=== PATIENT | male | born 1950 | race Caucasian/White ===

== ENCOUNTER 2017-07-01 08:49 | Inpatient (IN) | payer MEDICAID, MEDICARE ==
[2017-07-01] VITALS (11 sets, daily range): BP systolic 130–147; BP diastolic 81–89
[~2017-07-01] VITALS: Ht 182.9 cm; Wt 99.8 kg
[~2017-07-01 08:49] MED LIST: ceFAZolin 1gm in D5W 55ml IVP ONE; ceFAZolin 1gm/50ml Premix 50 ML IV ONE
[2017-07-01] MEDS ORDERED: HYTRIN10 MG PO (09:11)
[2017-07-01] MEDS ORDERED: MYRBETRIQ25 MG PO (09:11)
[2017-07-01] MEDS ORDERED: CIPRO500 MG/51 PO (09:11)
[2017-07-01] MEDS ORDERED: NAPROXEN250 M1 PO (09:51)
[2017-07-01] MEDS ORDERED: SOMA350 MG PO (09:51)
[2017-07-01] MEDS ORDERED: DILAUDID4 MG ORAL (09:51)
--- NOTE | 2017-07-01 10:13 | Anethesia Preoperative Eval ---
Anesthesia Pre-op PMH/ROS General Date of Evaluation: Jul 01, 2017 Anesthesiologist: Juan Alberto ASA Score: ASA 2 Mallampati Score Class I : Soft palate, uvula, fauces, pillars visible Class II: Soft palate, uvula, fauces visible Class III: Soft palate, base of uvula visible Class IV: Only hard plate visible Mallampati Classification: Class II Surgeon: Frank Diagnosis: BPH Surgical Procedure: TURP Anesthesia History: none Family History: no anesthesia problems Allergies: Coded Allergies: No Known Allergies (Unverified , 07/01/17) Medications: see eMAR Past Medical History Cardiovascular: Reports: HTN, Denies: CAD, NM, valve dz, arrhythmia, other Pulmonary: Denies: asthma, COPD, SHARRI, other Gastrointestinal/Genitourinary: Denies: GERD, CRI, ESRD, other Neurologic/Psychiatric: Reports: other - BPH, vertigo, menieres, Denies: dementia, CVA, depression/anxiety, TIA Endocrine: Denies: DM, hypothyroidism, steroids, other HEENT: Reports: [place] (R), Denies: cataract (L), cataract (R), glaucoma, [place] (L), other Hematology/Immune: Denies: anemia, DVT, bleeding disorder, other Musculoskeletal/Integumentary: Reports: OA, other - LBP, Denies: RA, DJD, DDD, edema Other: obesity PSxH Narrative: ear sx, lumbar sx, right foot sx Anesthesia Pre-op Phys. Exam Physician Exam Last Vital Signs Date Time Temp Pulse Resp B/P (MAP) Pulse Ox O2 Delivery O2 Flow Rate FiO2 07/01/17 09:56 98.3 72 18 137/89 95 Room Air Constitutional: NAD Cardiovascular: RRR Respiratory: CTA Airway Exam Mallampati Score: Class III MO: full ROM: limited Teeth: intact Anesthesia Pre-op A/P Labs see chart Studies Pre-op Studies: EKG - sr Risk Assessment & Plan Assessment: ASA II Plan: GA Status Change Before Surgery: No Pre-Antibiotics Drug: DANA PHILLIPS M.D. Jul 01, 2017 10:13
--- NOTE | 2017-07-01 12:12 | Pre-Procedure Note/Attestation ---
Pre-Procedure Note/Attestation Complete Prior to Procedure Planned Procedure: not applicable Procedure Narrative: TURP Indications for Procedure Pre-Operative Diagnosis: BPH Attestation I attest that I discussed the nature of the procedure; its benefits; risks and complications; and alternatives (and the risks and benefits of such alternatives ), prior to the procedure, with the patient (or the patient's legal automotive sales representative). I attest that, if there was a reasonable possibility of needing a blood transfusion, the patient (or the patient's legal automotive sales representative) was given the [facility] standardized written summary, pursuant to the [place] Blood Safety Act ([place] Health and Safety Code # 1645, as amended). I attest that I re-evaluated the patient just prior to the surgery and that there has been no change in the patient's H&P, except as documented below: Stefano Marie MD Jul 01, 2017 12:11
--- NOTE | 2017-07-01 12:13 | Brief Operative Note ---
Immediate Post Operative Note Operative Note Pre-op Diagnosis: BPH Procedure: TURP Post-op Diagnosis: same Post-op Diagnosis: same as pre-op Surgeon: Salvatore Marie Anesthesia: general Specimen: yes Complications: none Condition: stable Fluids: 1000 Estimated Blood Loss: minimal Implant(s) used?: No Stefano Marie MD Jul 01, 2017 12:13
[2017-07-01] MEDS ORDERED: Sterile Water Irrig 1000ml IRRIG ONE (12:27)
[2017-07-01] MEDS ORDERED: Lidocaine 1% MPF 10mg/ml 5ml ONE (12:27)
[2017-07-01] MEDS ORDERED: NS Irrig 2000ml IRRIG ONE (12:27)
[2017-07-01] MEDS ORDERED: fentaNYL 100 mcg/2 mL IV ONE (12:27)
[2017-07-01] MEDS ORDERED: LR 1000ml ONE (12:27)
[2017-07-01] MEDS ORDERED: Midazolam 2mg/2ml Inj ONE (12:27)
[2017-07-01] MEDS ORDERED: Zemuron 50mg/5ml Inj IV ONE (12:27)
[2017-07-01] MEDS ORDERED: NS Irrig 4000ml IRRIG ONE (12:27)
[2017-07-01] MEDS ORDERED: Propofol 200mg/20ml IV ONE (12:27)
[2017-07-01] MEDS ORDERED: NS Irrig 1000ml ONE (12:27)
[2017-07-01] MEDS ORDERED: LR 1000ml 1,000 ML IVLG SCH (12:53)
[2017-07-01] MEDS ORDERED: fentaNYL 100 mcg/2 mL IV PRN (13:00)
[2017-07-01] MEDS ORDERED: LORazepam Inj 2mg/ml 1ml IV PRN (13:00)
[2017-07-01] MEDS ORDERED: Ketorolac 30mg Inj IV PRN (13:00)
[2017-07-01] MEDS ORDERED: Midazolam 2mg/2ml Inj IVP PRN (13:00)
[2017-07-01] MEDS ORDERED: DiphenhydrAMINE 50mg/ml Inj IVP PRN (13:00)
--- NOTE | 2017-07-01 13:00 | Immediate Post-Op Evaluation ---
Immediate Post-Op Evalulation Immediate Post-Op Evalulation Procedure: TURP Date of Evaluation: Jul 01, 2017 Time of Evaluation: 13:59 Blood Products: 0 Estimated Blood Loss: 150 Urinary Output: 0 Blood Pressure Systolic: 139 Blood Pressure Diastolic: 85 Pulse Rate: 76 Respiratory Rate: 20 O2 Sat by Pulse Oximetry: 100 Temperature (Fahrenheit): 97.6 Pain Score (1-10): 0 Nausea: No Vomiting: No Complications 0 Patient Status: awake, reacts, patent, none Hydration Status: adequate Drug: Ancef 2g Given Within 1 Hr of Incision: Yes Time Given: 12:35 DANA THOMAS M.D. Jul 01, 2017 13:00
[2017-07-01] MEDS: Hydromorphone 0.5mg/0.5ml inj IVP PRN ×2 (14:35→14:56)
[2017-07-01 15:11] LABS: BASOPHILS % (AUTO) 1.1 % (0.0-2.0); EOSINOPHILS % (AUTO) 3.7 % (0.0-3.0); HEMATOCRIT 37.2 % (42.0-52.0); HEMOGLOBIN 12.7 G/DL (14.2-18.0); LYMPHOCYTES % (AUTO) 30.5 % (20.0-45.0); MEAN CORPUSCULAR VOLUME 89 FL (80-99); MONOCYTES % (AUTO) 8.5 % (1.0-10.0); NEUTROPHILS % (AUTO) 56.2 % (45.0-75.0); PLATELET COUNT 157 K/UL (150-450); RED CELL DISTRIBUTION WIDTH 11.3 % (11.6-14.8); WHITE BLOOD COUNT 3.7 K/UL (4.8-10.8)
[2017-07-01 15:34] LABS: ANION GAP 6 mmol/L (5-15); BLOOD UREA NITROGEN 18 mg/dL (7-18); CALCIUM 8.7 MG/DL (8.5-10.1); CARBON DIOXIDE 28 MMOL/L (21-32); CHLORIDE 111 MMOL/L (98-107); CREATININE 0.9 MG/DL (0.55-1.30); POTASSIUM 3.7 MMOL/L (3.5-5.1); SODIUM 145 MMOL/L (136-145)
--- NOTE | 2017-07-01 15:45 | History and Physical ---
History of Present Illness General Date patient seen: Jul 01, 2017 Reason for Hospitalization: Dysuria Present Illness HPI The patient is a 67 yo male with pmhx BPH, HTN anxiety disorder, insomnia and recurrent urinary tract infections who presents to [facility] with chief complaint of dysuria and urinary retention. A urinary consultation has been requested to evaluate the patients serious medical condition. The patient denies fever or chills. The patient denies shortness of breath or chest pain. NO complaint of urethral discharge. Allergies: Coded Allergies: No Known Allergies (Unverified , 07/01/17) Medication History Scheduled Carisoprodol* (Soma*), 350 MG PO NEEDED, (Reported) Docusate Sodium* (Colace*), 100 MG ORAL TWICE A DAY Hydromorphone HCl (Dilaudid), 4 MG ORAL Q4H, (Reported) Levofloxacin* (Levaquin*), 500 MG ORAL DAILY Mirabegron (Myrbetriq), 25 MG PO DAILY, (Reported) Naproxen (Naproxen), 250 MG PO DAILY, (Reported) Terazosin HCl (Terazosin HCl), 2 MG ORAL BEDTIME Scheduled PRN Acetaminophen With Codeine (T#3) (Tylenol #3 Tab*), 1 TAB ORAL Q6HR PRN Patient History Healthcare decision maker SELF Resuscitation status Full Code Advanced Directive on File No Review of Systems Constitutional: Reports: malaise, weakness Genitourinary: Reports: dysuria, frequency, pain, retention, incontinence, urgency Physical Exam General Appearance: moderate distress Lines, tubes and drains: peripheral HEENT: normocephalic, atraumatic, anicteric, mucous membranes moist, PERRL Neck: non-tender, normal alignment, supple, normal inspection Respiratory/Chest: chest wall non-tender, no respiratory distress, no accessory muscle use Breasts: no masses Cardiovascular/Chest: normal peripheral pulses, normal rate, regular rhythm, no JVD Abdomen: normal bowel sounds, distended, guarding, rebound, tender Genitourinary/Rectal: enlarged prostate Extremities: normal range of motion, non-tender, normal inspection, no calf tenderness Skin Exam: normal pigmentation, warm/dry 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, no motor/sensory deficits Last 24 Hour Vital Signs Date Time Temp Pulse Resp B/P (MAP) Pulse Ox O2 Delivery O2 Flow Rate FiO2 07/01/17 15:30 98.0 65 20 140/85 100 Nasal Cannula 3.0 07/01/17 15:20 62 20 132/85 100 Nasal Cannula 3.0 07/01/17 15:12 72 20 130/83 100 Nasal Cannula 3.0 07/01/17 15:00 63 20 139/87 100 Nasal Cannula 3.0 07/01/17 14:56 72 20 147/87 100 Nasal Cannula 3.0 07/01/17 14:56 97.6 07/01/17 14:41 97.6 07/01/17 14:35 72 20 147/87 100 Nasal Cannula 3.0 07/01/17 14:10 71 20 147/83 100 Simple Mask 8.0 07/01/17 14:05 76 20 140/88 100 Simple Mask 8.0 07/01/17 13:59 97.6 76 20 139/85 100 Simple Mask 8.0 07/01/17 09:56 98.3 72 18 137/89 95 Room Air Laboratory Tests Test 07/01/17 09:30 07/01/17 14:50 Prothrombin Time 10.1 SEC (9.30-11.50) Prothromb Time International Ratio 1.0 (0.9-1.1) Activated Partial Thromboplast Time 26 SEC (23-33) White Blood Count 3.7 K/UL (4.8-10.8) L Red Blood Count 4.20 M/UL (4.70-6.10) L Hemoglobin 12.7 G/DL (14.2-18.0) L Hematocrit 37.2 % (42.0-52.0) L Mean Corpuscular Volume 89 FL (80-99) Mean Corpuscular Hemoglobin 30.3 PG (27.0-31.0) Mean Corpuscular Hemoglobin Concent 34.2 G/DL (32.0-36.0) Red Cell Distribution Width 11.3 % (11.6-14.8) L Platelet Count 157 K/UL (150-450) Mean Platelet Volume 8.3 FL (6.5-10.1) Neutrophils (%) (Auto) 56.2 % (45.0-75.0) Lymphocytes (%) (Auto) 30.5 % (20.0-45.0) Monocytes (%) (Auto) 8.5 % (1.0-10.0) Eosinophils (%) (Auto) 3.7 % (0.0-3.0) H Basophils (%) (Auto) 1.1 % (0.0-2.0) Sodium Level 145 MMOL/L (136-145) Potassium Level 3.7 MMOL/L (3.5-5.1) Chloride Level 111 MMOL/L (98-107) H Carbon Dioxide Level 28 MMOL/L (21-32) Anion Gap 6 mmol/L (5-15) Blood Urea Nitrogen 18 mg/dL (7-18) Creatinine 0.9 MG/DL (0.55-1.30) Estimat Glomerular Filtration Rate > 60 mL/min (>60) Glucose Level 97 MG/DL (74-106) Calcium Level 8.7 MG/DL (8.5-10.1) Height (Feet): 6 Height (Inches): 0.00 Weight (Pounds): 220 Medications Current Medications Medications (Trade) Dose Ordered Sig/Conchita Route PRN Reason Start Time Stop Time Status Last Admin Dose Admin Acetaminophen (Tylenol) 650 mg Q4H PRN ORAL FEVER 07/01/17 12:15 07/31/17 12:14 UNV Acetaminophen (Tylenol) 650 mg Q4H PRN ORAL Mild Pain (Pain Scale 1-3) 07/01/17 13:00 07/01/17 20:00 Acetaminophen (Tylenol) 650 mg Q6H PRN ORAL Mild Pain (Pain Scale 1-3) 07/01/17 12:15 07/31/17 12:14 UNV Acetaminophen/ Hydrocodone Bitart ([place] 5/325) 1 tab Q4H PRN ORAL Moderate Pain (Pain Scale 4-6) 07/01/17 12:15 07/08/17 12:14 UNV Cefazolin Sodium 2 gm/Dextrose 110 ml @ 220 mls/hr EVERY 8 HOURS IV 07/01/17 14:00 07/01/17 22:29 UNV Dextrose/ Electrolytes 1,000 ml @ 100 mls/hr Q10H IV 07/01/17 12:13 07/31/17 12:12 UNV Diphenhydramine HCl (Benadryl) 25 mg Q15M PRN IVP Itching 07/01/17 13:00 07/01/17 20:00 07/01/17 14:42 Docusate Sodium (Colace) 100 mg TWICE A DAY ORAL 07/01/17 18:00 07/31/17 17:59 UNV Fentanyl Citrate (Sublimaze 100 mcg/2 mL) 25 mcg Q10M PRN IV Moderate Pain (Pain Scale 4-6) 07/01/17 13:00 07/01/17 20:00 Hydralazine HCl (Apresoline) 5 mg Q30M PRN IV SBP>160 OR___/DBP>90 OR___ 07/01/17 13:00 07/01/17 20:00 Hydromorphone HCl (Dilaudid) 0.5 mg Q15M PRN IVP Severe Pain (Pain Scale 7-10) 07/01/17 13:00 07/01/17 20:00 07/01/17 14:56 Hydromorphone HCl (Dilaudid) 1 mg Q3H PRN IVP pain score 4-6 07/01/17 12:15 07/08/17 12:14 UNV Lactated Ringer's 1,000 ml @ 10 mls/hr Q24H IVLG 07/01/17 12:53 07/01/17 20:00 Lorazepam (Ativan 2mg/ml 1ml) 1 mg Q15M PRN IV For Anxiety 07/01/17 13:00 07/01/17 20:00 Midazolam HCl (Versed 2mg/2ml vial) 1 mg Q15M PRN IVP For Anxiety 07/01/17 13:00 07/01/17 20:00 Ondansetron HCl (Zofran) 4 mg Q1H PRN IVP Nausea & Vomiting 07/01/17 13:00 07/01/17 20:00 Ondansetron HCl (Zofran) 4 mg Q6H PRN IVP Nausea & Vomiting 07/01/17 12:15 07/31/17 12:14 UNV Temazepam (Restoril) 7.5 mg DAILYPRN PRN ORAL Insomnia 07/01/17 12:15 07/08/17 12:14 UNV Assessment/Plan Status: stable, progressing Assessment/Plan BPH Anxiety disorder Insomnia PLAN Avoid IVF at this time Attempt [facility] Urology consultation requested Pain management Empiric abx OT OOB and ambulate Soft diet as tolerated Anti-emetic prn Psych requested JAYNA VILLEDA Jul 01, 2017 15:44
[2017-07-01] MEDS ORDERED: HYDROmorphone 4mg tab ORAL SCH (16:00)
[2017-07-01] MEDS: D5 1/2NS w/KCl 20mEq 1,000 ML IV SCH (18:06)
[2017-07-01] MEDS: Docusate 100mg cap ORAL SCH (18:06)
[2017-07-01] MEDS: ceFAZolin sod 2 GM in NS 110 ML IV SCH (22:03)
[2017-07-01] MEDS: Terazosin 2mg cap ORAL SCH (22:03)
[2017-07-01] MEDS: HYDROmorphone 1mg/ml Carpuject IVP PRN (22:19)
[2017-07-02] VITALS: BP 143/88
[2017-07-02] MEDS: Norco 5mg/325mg tab ORAL PRN ×2 (00:23→13:23)
[2017-07-02] MEDS: ceFAZolin sod 2 GM in NS 110 ML IV SCH (03:34)
[2017-07-02] MEDS: D5 1/2NS w/KCl 20mEq 1,000 ML IV SCH ×4 (03:36→23:56)
[2017-07-02] MEDS: HYDROmorphone 1mg/ml Carpuject IVP PRN ×2 (03:37→07:13)
[2017-07-02 04:00] VITALS: BP 127/77
--- NOTE | 2017-07-02 07:14 | 48 Hour Post Anesthesia Eval ---
Post Anesthesia Evaluation Procedure: TURP Date of Evaluation: Jul 02, 2017 Time of Evaluation: 07:13 Blood Pressure Systolic: 127 0: 77 Pulse Rate: 73 Respiratory Rate: 19 Temperature (Fahrenheit): 97.1 O2 Sat by Pulse Oximetry: 98 Airway: patent Nausea: No Vomiting: No Pain Intensity: 2 Hydration Status: adequate Cardiopulmonary Status: Stable Mental Status/LOC: patient returned to baseline Follow-up Care/Observations: 0 Post-Anesthesia Complications: 0 Follow-up care needed: N/A John Kee MD Jul 02, 2017 07:14
[2017-07-02 07:31] LABS: BASOPHILS % (AUTO) 0.8 % (0.0-2.0); EOSINOPHILS % (AUTO) 4.8 % (0.0-3.0); HEMATOCRIT 36.4 % (42.0-52.0); HEMOGLOBIN 12.5 G/DL (14.2-18.0); LYMPHOCYTES % (AUTO) 20.9 % (20.0-45.0); MEAN CORPUSCULAR VOLUME 89 FL (80-99); NEUTROPHILS % (AUTO) 66.5 % (45.0-75.0); PLATELET COUNT 161 K/UL (150-450); RED BLOOD COUNT 4.11 M/UL (4.70-6.10); WHITE BLOOD COUNT 5.4 K/UL (4.8-10.8)
[2017-07-02 07:44] LABS: ANION GAP 3 mmol/L (5-15); BLOOD UREA NITROGEN 13 mg/dL (7-18); CALCIUM 8.1 MG/DL (8.5-10.1); CARBON DIOXIDE 30 MMOL/L (21-32); CHLORIDE 108 MMOL/L (98-107); CREATININE 0.8 MG/DL (0.55-1.30); POTASSIUM 3.9 MMOL/L (3.5-5.1); SODIUM 141 MMOL/L (136-145)
[2017-07-02 08:00] VITALS: BP 141/88
--- NOTE | 2017-07-02 08:32 | Pulmonology Progress Note ---
Assessment/Plan Assessment/Plan ASSESSMENT BPH s/p TURP 07/01/17 PLAN OF CARE MS floor IVF, decrease rate CBI monitor urine hand irrigation prn Pain management empiric abx IS at the bedside and encourage to use Hytrin OT OOB and ambulate CL diet tolerated, advacne to [place] for lunch and then further advance as tolerated a/emetic prn case discussed and evaluated by supervising physician Subjective Allergies: Coded Allergies: No Known Allergies (Unverified , 07/01/17) Subjective afebrile, no leucocytosis sitting in the chair pain controlled on CBI, urine pinkish, no clots tolerated CL diet Objective Last 24 Hour Vital Signs Date Time Temp Pulse Resp B/P (MAP) Pulse Ox O2 Delivery O2 Flow Rate FiO2 07/02/17 07:14 206.8 73 19 98 07/02/17 04:00 97.1 73 19 127/77 98 07/02/17 04:00 Nasal Cannula 3.0 07/02/17 00:00 98.3 76 18 143/88 99 07/02/17 00:00 Nasal Cannula 3.0 07/01/17 20:00 Nasal Cannula 3.0 07/01/17 20:00 97.3 72 20 137/81 100 07/01/17 15:30 98.0 65 20 140/85 100 Nasal Cannula 3.0 07/01/17 15:20 62 20 132/85 100 Nasal Cannula 3.0 07/01/17 15:12 72 20 130/83 100 Nasal Cannula 3.0 07/01/17 15:00 63 20 139/87 100 Nasal Cannula 3.0 07/01/17 14:56 72 20 147/87 100 Nasal Cannula 3.0 07/01/17 14:56 97.6 07/01/17 14:41 97.6 07/01/17 14:35 72 20 147/87 100 Nasal Cannula 3.0 07/01/17 14:10 71 20 147/83 100 Simple Mask 8.0 07/01/17 14:05 76 20 140/88 100 Simple Mask 8.0 07/01/17 13:59 97.6 76 20 139/85 100 Simple Mask 8.0 07/01/17 09:56 98.3 72 18 137/89 95 Room Air Intake and Output 07/01/17 07/02/17 19:00 07:00 Intake Total 1000 ml 1460 ml Output Total 7900 ml Balance 1000 ml -6440 ml Intake Oral 240 ml IV Total 1000 ml 1220 ml Output Urine Total 7900 ml # Voids 101 # Bowel Movements 1 General Appearance: no acute distress, other - A/A/O x 3 male HEENT: normocephalic, atraumatic, anicteric, mucous membranes moist, PERRL Respiratory/Chest: lungs clear, no respiratory distress, no accessory muscle use Cardiovascular: normal peripheral pulses, normal rate, regular rhythm, no JVD Abdomen: normal bowel sounds, soft, non tender Genitourinary: other - [place] with light pinkish color urine, no clots Extremities: no edema, pedal pulses normal Neurologic/Psychiatric: no motor/sensory deficits, alert, oriented x 3, responsive Musculoskeletal: normal muscle bulk Laboratory Tests 07/01/17 09:30: Prothrombin Time 10.1, Prothromb Time International Ratio 1.0, Activated Partial Thromboplast Time 26 07/01/17 14:50: White Blood Count 3.7L, Red Blood Count 4.20L, Hemoglobin 12.7L, Hematocrit 37.2L, Mean Corpuscular Volume 89, Mean Corpuscular Hemoglobin 30.3, Mean Corpuscular Hemoglobin Concent 34.2, Red Cell Distribution Width 11.3L, Platelet Count 157, Mean Platelet Volume 8.3, Neutrophils (%) (Auto) 56.2, Lymphocytes (%) (Auto) 30.5, Monocytes (%) (Auto) 8.5, Eosinophils (%) (Auto) 3.7H, Basophils (%) (Auto) 1.1, Sodium Level 145, Potassium Level 3.7, Chloride Level 111H, Carbon Dioxide Level 28, Anion Gap 6, Blood Urea Nitrogen 18, Creatinine 0.9, Estimat Glomerular Filtration Rate > 60, Glucose Level 97, Calcium Level 8.7 07/02/17 06:53: White Blood Count 5.4, Red Blood Count 4.11L, Hemoglobin 12.5L, Hematocrit 36.4L , Mean Corpuscular Volume 89, Mean Corpuscular Hemoglobin 30.5, Mean Corpuscular Hemoglobin Concent 34.4, Red Cell Distribution Width 11.0L, Platelet Count 161, Mean Platelet Volume 7.3, Neutrophils (%) (Auto) 66.5, Lymphocytes (%) (Auto) 20.9, Monocytes (%) (Auto) 7.0, Eosinophils (%) (Auto) 4.8H, Basophils (%) (Auto) 0.8, Sodium Level 141, Potassium Level 3.9, Chloride Level 108H, Carbon Dioxide Level 30, Anion Gap 3L, Blood Urea Nitrogen 13, Creatinine 0.8, Estimat Glomerular Filtration Rate > 60, Glucose Level 98, Calcium Level 8.1L Current Medications Medications (Trade) Dose Ordered Sig/Conchita Route PRN Reason Start Time Stop Time Status Last Admin Dose Admin Acetaminophen (Tylenol) 650 mg Q4H PRN ORAL FEVER 07/01/17 12:15 07/31/17 12:14 Acetaminophen (Tylenol) 650 mg Q6H PRN ORAL Mild Pain (Pain Scale 1-3) 07/01/17 12:15 07/31/17 12:14 Acetaminophen/ Hydrocodone Bitart ([place] 5/325) 1 tab Q4H PRN ORAL Moderate Pain (Pain Scale 4-6) 07/01/17 12:15 07/08/17 12:14 07/02/17 00:23 Carisoprodol (Soma) 350 mg EVERY 6 HOURS PRN ORAL spasm 07/01/17 15:45 07/31/17 15:44 07/01/17 17:13 Dextrose/ Electrolytes 1,000 ml @ 100 mls/hr Q10H IV 07/01/17 17:30 07/31/17 17:29 07/02/17 03:36 Docusate Sodium (Colace) 100 mg TWICE A DAY ORAL 07/01/17 18:00 07/31/17 17:59 07/01/17 18:06 Hydromorphone HCl (Dilaudid) 1 mg Q3H PRN IVP pain score 4-6 07/01/17 12:15 07/08/17 12:14 07/02/17 07:13 Ondansetron HCl (Zofran) 4 mg Q6H PRN IVP Nausea & Vomiting 07/01/17 12:15 07/31/17 12:14 Temazepam (Restoril) 7.5 mg DAILYPRN PRN ORAL Insomnia 07/01/17 12:15 07/08/17 12:14 Terazosin HCl (Hytrin) 2 mg BEDTIME ORAL 07/01/17 21:00 07/31/17 20:59 07/01/17 22:03 Louie ([facility])Marguerite NP Jul 02, 2017 08:32
[2017-07-02] MEDS: Docusate 100mg cap ORAL SCH ×2 (08:57→17:35)
[2017-07-02 12:00] VITALS: BP 152/89
[2017-07-02 16:00] VITALS: BP 153/95
[2017-07-02] MEDS ORDERED: NS Irrig 4000ml IRRIG ONE (16:23)
--- NOTE | 2017-07-02 19:01 | Consultation ---
History of Present Illness General Date patient seen: Jul 01, 2017 Present Illness HPI 67 yo male with hx of anxiety and insomnia as well as BPH s/p TURP 07/01/17. the pt has been has been severely anxious and has insomnia for 2 years. he has been more stressed out due to recent medical condition, Allergies: Coded Allergies: No Known Allergies (Unverified , 07/01/17) Medication History Scheduled Carisoprodol* (Soma*), 350 MG PO NEEDED, (Reported) Hydromorphone HCl (Dilaudid), 4 MG ORAL Q4H, (Reported) Mirabegron (Myrbetriq), 25 MG PO DAILY, (Reported) Naproxen (Naproxen), 250 MG PO DAILY, (Reported) Terazosin HCl (Terazosin HCl), 10 MG PO QHS, (Reported) Discontinued Medications Ciprofloxacin (Cipro), 500 MG PO BID, (Reported) Discontinued Reason: Pt stopped taking med Patient History Limited by: medical condition History Provided By: Patient, Medical Record, PMD Healthcare decision maker SELF Resuscitation status Full Code Advanced Directive on File No Review of Systems Psychiatric: Reports: prior hx, anxiety, depressed feelings, emotional problems Physical Exam General Appearance: no apparent distress, alert, agitated Neurologic: alert, oriented x 3, responsive, depressed affect Last 24 Hour Vital Signs Date Time Temp Pulse Resp B/P (MAP) Pulse Ox O2 Delivery O2 Flow Rate FiO2 07/02/17 18:21 97.9 07/02/17 16:00 97.9 76 20 153/95 98 07/02/17 14:34 97.6 07/02/17 14:22 97.6 07/02/17 14:21 97.6 07/02/17 14:21 97.6 07/02/17 13:23 97.6 07/02/17 13:22 97.6 07/02/17 12:00 97.6 70 19 152/89 98 07/02/17 10:49 97.0 07/02/17 10:19 97.0 07/02/17 08:00 97.0 97 19 141/88 98 07/02/17 07:14 206.8 73 19 98 07/02/17 04:00 97.1 73 19 127/77 98 07/02/17 04:00 Nasal Cannula 3.0 07/02/17 00:00 98.3 76 18 143/88 99 07/02/17 00:00 Nasal Cannula 3.0 07/01/17 20:00 Nasal Cannula 3.0 07/01/17 20:00 97.3 72 20 137/81 100 Intake and Output 07/01/17 07/02/17 19:00 07:00 Intake Total 1000 ml 1460 ml Output Total 7900 ml Balance 1000 ml -6440 ml Intake Oral 240 ml IV Total 1000 ml 1220 ml Output Urine Total 7900 ml # Voids 101 # Bowel Movements 1 Laboratory Tests Test 07/02/17 06:53 White Blood Count 5.4 K/UL (4.8-10.8) Red Blood Count 4.11 M/UL (4.70-6.10) L Hemoglobin 12.5 G/DL (14.2-18.0) L Hematocrit 36.4 % (42.0-52.0) L Mean Corpuscular Volume 89 FL (80-99) Mean Corpuscular Hemoglobin 30.5 PG (27.0-31.0) Mean Corpuscular Hemoglobin Concent 34.4 G/DL (32.0-36.0) Red Cell Distribution Width 11.0 % (11.6-14.8) L Platelet Count 161 K/UL (150-450) Mean Platelet Volume 7.3 FL (6.5-10.1) Neutrophils (%) (Auto) 66.5 % (45.0-75.0) Lymphocytes (%) (Auto) 20.9 % (20.0-45.0) Monocytes (%) (Auto) 7.0 % (1.0-10.0) Eosinophils (%) (Auto) 4.8 % (0.0-3.0) H Basophils (%) (Auto) 0.8 % (0.0-2.0) Sodium Level 141 MMOL/L (136-145) Potassium Level 3.9 MMOL/L (3.5-5.1) Chloride Level 108 MMOL/L (98-107) H Carbon Dioxide Level 30 MMOL/L (21-32) Anion Gap 3 mmol/L (5-15) L Blood Urea Nitrogen 13 mg/dL (7-18) Creatinine 0.8 MG/DL (0.55-1.30) Estimat Glomerular Filtration Rate > 60 mL/min (>60) Glucose Level 98 MG/DL (74-106) Calcium Level 8.1 MG/DL (8.5-10.1) L Height (Feet): 6 Height (Inches): 0.00 Weight (Pounds): 220 Medications Current Medications Medications (Trade) Dose Ordered Sig/Conchita Route PRN Reason Start Time Stop Time Status Last Admin Dose Admin Acetaminophen (Tylenol) 650 mg Q4H PRN ORAL FEVER 07/01/17 12:15 07/31/17 12:14 Acetaminophen (Tylenol) 650 mg Q6H PRN ORAL Mild Pain (Pain Scale 1-3) 07/01/17 12:15 07/31/17 12:14 Acetaminophen/ Hydrocodone Bitart ([place] 5/325) 1 tab Q4H PRN ORAL Moderate Pain (Pain Scale 4-6) 07/01/17 12:15 07/08/17 12:14 07/02/17 13:23 Carisoprodol (Soma) 350 mg EVERY 6 HOURS PRN ORAL spasm 07/01/17 15:45 07/31/17 15:44 07/02/17 13:22 Dextrose/ Electrolytes 1,000 ml @ 75 mls/hr [id number] IV 07/02/17 10:30 08/01/17 10:29 07/02/17 13:16 Docusate Sodium (Colace) 100 mg TWICE A DAY ORAL 07/01/17 18:00 07/31/17 17:59 07/02/17 17:35 Hydromorphone HCl (Dilaudid) 2 mg Q3H PRN IVP Severe Pain (Pain Scale 7-10) 07/02/17 14:30 07/09/17 14:29 07/02/17 18:21 Ondansetron HCl (Zofran) 4 mg Q6H PRN IVP Nausea & Vomiting 07/01/17 12:15 07/31/17 12:14 Temazepam (Restoril) 7.5 mg DAILYPRN PRN ORAL Insomnia 07/01/17 12:15 07/08/17 12:14 Terazosin HCl (Hytrin) 2 mg BEDTIME ORAL 07/01/17 21:00 07/31/17 20:59 07/01/17 22:03 Assessment/Plan Status: unchanged Assessment/Plan Anxiety d/o Insomnia Trazodone 25mg qhs Heidy Hannah M.D. Jul 02, 2017 19:01
--- NOTE | 2017-07-02 19:03 | General Progress Note ---
Assessment/Plan Status: stable, progressing Assessment/Plan Anxiety d/o Insomnia trazodone 25mg qhs Subjective Date patient seen: Jul 02, 2017 Neurologic/Psychiatric: Reports: anxiety, depressed, emotional problems Allergies: Coded Allergies: No Known Allergies (Unverified , 07/01/17) Objective Last 24 Hour Vital Signs Date Time Temp Pulse Resp B/P (MAP) Pulse Ox O2 Delivery O2 Flow Rate FiO2 07/02/17 18:21 97.9 07/02/17 16:00 97.9 76 20 153/95 98 07/02/17 14:34 97.6 07/02/17 14:22 97.6 07/02/17 14:21 97.6 07/02/17 14:21 97.6 07/02/17 13:23 97.6 07/02/17 13:22 97.6 07/02/17 12:00 97.6 70 19 152/89 98 07/02/17 10:49 97.0 07/02/17 10:19 97.0 07/02/17 08:00 97.0 97 19 141/88 98 07/02/17 07:14 206.8 73 19 98 07/02/17 04:00 97.1 73 19 127/77 98 07/02/17 04:00 Nasal Cannula 3.0 07/02/17 00:00 98.3 76 18 143/88 99 07/02/17 00:00 Nasal Cannula 3.0 07/01/17 20:00 Nasal Cannula 3.0 07/01/17 20:00 97.3 72 20 137/81 100 Intake and Output 07/01/17 07/02/17 19:00 07:00 Intake Total 1000 ml 1460 ml Output Total 7900 ml Balance 1000 ml -6440 ml Intake Oral 240 ml IV Total 1000 ml 1220 ml Output Urine Total 7900 ml # Voids 101 # Bowel Movements 1 Laboratory Tests 07/02/17 06:53: White Blood Count 5.4, Red Blood Count 4.11L, Hemoglobin 12.5L, Hematocrit 36.4L , Mean Corpuscular Volume 89, Mean Corpuscular Hemoglobin 30.5, Mean Corpuscular Hemoglobin Concent 34.4, Red Cell Distribution Width 11.0L, Platelet Count 161, Mean Platelet Volume 7.3, Neutrophils (%) (Auto) 66.5, Lymphocytes (%) (Auto) 20.9, Monocytes (%) (Auto) 7.0, Eosinophils (%) (Auto) 4.8H, Basophils (%) (Auto) 0.8, Sodium Level 141, Potassium Level 3.9, Chloride Level 108H, Carbon Dioxide Level 30, Anion Gap 3L, Blood Urea Nitrogen 13, Creatinine 0.8, Estimat Glomerular Filtration Rate > 60, Glucose Level 98, Calcium Level 8.1L Height (Feet): 6 Height (Inches): 0.00 Weight (Pounds): 220 General Appearance: no apparent distress, alert Neurologic: alert, oriented x 3, responsive, depressed affect Heidy Hannah M.D. Jul 02, 2017 19:03
[2017-07-02 20:00] VITALS: BP 148/90
[2017-07-02] MEDS: Terazosin 2mg cap ORAL SCH (21:53)
[2017-07-02] MEDS: TraZODone HCl 25 mg tablet ORAL SCH (21:53)
[2017-07-03 00:45] VITALS: BP 159/89
[2017-07-03 04:00] VITALS: BP 157/97
[2017-07-03 08:00] VITALS: BP 155/80
--- NOTE | 2017-07-03 08:07 | Pulmonology Progress Note ---
Assessment/Plan Assessment/Plan ASSESSMENT BPH s/p TURP 07/01/17 anxiety disorder insomnia PLAN OF CARE MS floor IVF, decrease rate off CBI, Boyer dc not voided yet Pain management empiric abx IS at the bedside and encourage to use Hytrin OT OOB and ambulate soft diet as tolerated a/emetic prn psych eval appreciated started on trazodone dc plan for tomorrow case discussed and evaluated by supervising physician Subjective Allergies: Coded Allergies: No Known Allergies (Unverified , 07/01/17) Subjective afebrile, no leucocytosis sitting in the chair pain controlled off CBI, Boyer dc tolerated full liquid diet Objective Last 24 Hour Vital Signs Date Time Temp Pulse Resp B/P (MAP) Pulse Ox O2 Delivery O2 Flow Rate FiO2 07/03/17 04:00 98.1 79 20 157/97 97 Room Air 07/03/17 02:06 98.1 07/03/17 00:45 98.1 75 19 159/89 97 Room Air 07/02/17 20:00 98.3 70 18 148/90 98 Room Air 07/02/17 18:51 97.9 07/02/17 18:21 97.9 07/02/17 16:00 97.9 76 20 153/95 98 07/02/17 14:34 97.6 07/02/17 14:22 97.6 07/02/17 14:21 97.6 07/02/17 13:23 97.6 07/02/17 13:22 97.6 07/02/17 12:00 97.6 70 19 152/89 98 07/02/17 10:49 97.0 07/02/17 10:19 97.0 Intake and Output 07/02/17 07/03/17 19:00 07:00 Intake Total 1940 ml 540 ml Output Total 200 ml Balance 1740 ml 540 ml Intake Oral 890 ml 240 ml IV Total 1050 ml 300 ml Output Urine Total 200 ml Objective General Appearance: no acute distress, A/A/O x 3 male HEENT: normocephalic, atraumatic, anicteric, mucous membranes moist, PERRL Respiratory/Chest: lungs clear, no respiratory distress, no accessory muscle use Cardiovascular: normal peripheral pulses, normal rate, regular rhythm, no JVD Abdomen: normal bowel sounds, soft, non tender Extremities: no edema, pedal pulses normal Neurologic/Psychiatric: no motor/sensory deficits, alert, oriented x 3, responsive Musculoskeletal: normal muscle bulk Laboratory Tests 07/03/17 06:44: White Blood Count [Pending], Red Blood Count [Pending], Hemoglobin [Pending], Hematocrit [Pending], Mean Corpuscular Volume [Pending], Mean Corpuscular Hemoglobin [Pending], Mean Corpuscular Hemoglobin Concent [Pending], Red Cell Distribution Width [Pending], Platelet Count [Pending], Mean Platelet Volume [ Pending], Neutrophils (%) (Auto) [Pending], Lymphocytes (%) (Auto) [Pending], Monocytes (%) (Auto) [Pending], Eosinophils (%) (Auto) [Pending], Basophils (%) (Auto) [Pending], Sodium Level [Pending], Potassium Level [Pending], Chloride Level [Pending], Carbon Dioxide Level [Pending], Blood Urea Nitrogen [Pending], Creatinine [Pending], Estimat Glomerular Filtration Rate [Pending], Glucose Level [Pending], Calcium Level [Pending] Current Medications Medications (Trade) Dose Ordered Sig/Conchita Route PRN Reason Start Time Stop Time Status Last Admin Dose Admin Acetaminophen (Tylenol) 650 mg Q4H PRN ORAL FEVER 07/01/17 12:15 07/31/17 12:14 Acetaminophen (Tylenol) 650 mg Q6H PRN ORAL Mild Pain (Pain Scale 1-3) 07/01/17 12:15 07/31/17 12:14 Acetaminophen/ Hydrocodone Bitart ([place] 5/325) 1 tab Q4H PRN ORAL Moderate Pain (Pain Scale 4-6) 07/01/17 12:15 07/08/17 12:14 07/02/17 13:23 Carisoprodol (Soma) 350 mg EVERY 6 HOURS PRN ORAL spasm 07/01/17 15:45 07/31/17 15:44 07/03/17 06:01 Docusate Sodium (Colace) 100 mg TWICE A DAY ORAL 07/01/17 18:00 07/31/17 17:59 07/02/17 17:35 Hydromorphone HCl (Dilaudid) 2 mg Q3H PRN IVP Severe Pain (Pain Scale 7-10) 07/02/17 14:30 07/09/17 14:29 07/03/17 05:52 Lidocaine (Lidoderm 5% PATCH) 1 patch BEDTIME TDERMAL 07/02/17 22:00 08/01/17 21:59 07/02/17 22:00 Ondansetron HCl (Zofran) 4 mg Q6H PRN IVP Nausea & Vomiting 07/01/17 12:15 07/31/17 12:14 Temazepam (Restoril) 7.5 mg DAILYPRN PRN ORAL Insomnia 07/01/17 12:15 07/08/17 12:14 Terazosin HCl (Hytrin) 2 mg BEDTIME ORAL 07/01/17 21:00 07/31/17 20:59 07/02/17 21:53 Trazodone HCl (Desyrel) 25 mg BEDTIME ORAL 07/02/17 21:00 08/01/17 20:59 07/02/17 21:53 Louie ([facility])Marguerite NP Jul 03, 2017 08:07
[2017-07-03 08:16] LABS: BASOPHILS % (AUTO) 0.4 % (0.0-2.0); EOSINOPHILS % (AUTO) 5.7 % (0.0-3.0); HEMATOCRIT 36.1 % (42.0-52.0); HEMOGLOBIN 12.4 G/DL (14.2-18.0); MEAN CORPUSCULAR VOLUME 90 FL (80-99); MONOCYTES % (AUTO) 8.5 % (1.0-10.0); NEUTROPHILS % (AUTO) 67.5 % (45.0-75.0); PLATELET COUNT 163 K/UL (150-450); RED BLOOD COUNT 4.02 M/UL (4.70-6.10); RED CELL DISTRIBUTION WIDTH 11.1 % (11.6-14.8); WHITE BLOOD COUNT 6.6 K/UL (4.8-10.8)
[2017-07-03 08:31] LABS: ANION GAP 4 mmol/L (5-15); BLOOD UREA NITROGEN 6 mg/dL (7-18); CALCIUM 8.8 MG/DL (8.5-10.1); CARBON DIOXIDE 30 MMOL/L (21-32); CHLORIDE 108 MMOL/L (98-107); CREATININE 0.8 MG/DL (0.55-1.30); POTASSIUM 3.4 MMOL/L (3.5-5.1); SODIUM 142 MMOL/L (136-145)
[2017-07-03] MEDS: Docusate 100mg cap ORAL SCH ×2 (08:34→17:45)
[2017-07-03] MEDS: Levofloxacin 500mg tab ORAL SCH (09:19)
[2017-07-03] MEDS ORDERED: NS Irrig 4000ml IRRIG ONE (11:19)
[2017-07-03] MEDS ORDERED: NS Irrig 1000ml ONE (11:19)
[2017-07-03 12:00] VITALS: BP 142/90
--- NOTE | 2017-07-03 14:30 | Operative Note - Dictated ---
DATE OF OPERATION: 07/01/2017 PREOPERATIVE DIAGNOSES: 1. Benign prostatic hypertrophy. 2. Recurrent urinary tract infections. POSTOPERATIVE DIAGNOSES: 1. Benign prostatic hypertrophy. 2. Recurrent urinary tract infections. OPERATION: Transurethral resection of the prostate. OPERATED BY: Stefano Marie M.D. ANESTHESIA: General. FINDINGS: Enlarged prostate with large median lobe. INDICATION FOR SURGERY: The patient previously had many years ago unsuccessfully, had recurrent urinary tract infections and despite multiple courses of antibiotics with partial residual urinary retention. Treatment options were explained to the patient in great length including all potential complications and he signed the consent. DESCRIPTION OF PROCEDURE: He was brought to the operating room, placed in lithotomy position, and prepped and draped in standard fashion. Under general anesthesia, resectoscope was introduced into the bladder and using bipolar TURP, the prostate was removed medially and over the lateral lobes and chips were evacuated with [employer]ant[employer] evacuator. After that, a Boyer catheter was placed and bleeding was stopped with button electrode. No evidence of hematuria. Chips were cleared. Boyer was intact and CBI was started. Sponge count and instrument count was correct. The patient tolerated the procedure well. No evidence of complication. Stefano Marie M.D. DR: TAY JOB#: [id number] CC:
[2017-07-03 16:00] VITALS: BP 143/83
[2017-07-03 20:50] VITALS: BP 144/83
[2017-07-03] MEDS: TraZODone HCl 25 mg tablet ORAL SCH (21:10)
[2017-07-03] MEDS: Terazosin 2mg cap ORAL SCH (21:10)
[2017-07-04 00:48] VITALS: BP 140/80
[2017-07-04 04:51] VITALS: BP 138/69
[2017-07-04 08:00] VITALS: BP 154/84
[2017-07-04] MEDS: Levofloxacin 500mg tab ORAL SCH (08:45)
[2017-07-04] MEDS: Docusate 100mg cap ORAL SCH (08:45)
[2017-07-04 08:47] LABS: BASOPHILS % (AUTO) 0.6 % (0.0-2.0); EOSINOPHILS % (AUTO) 7.8 % (0.0-3.0); HEMATOCRIT 35.9 % (42.0-52.0); HEMOGLOBIN 12.3 G/DL (14.2-18.0); LYMPHOCYTES % (AUTO) 23.9 % (20.0-45.0); MEAN CORPUSCULAR VOLUME 89 FL (80-99); MONOCYTES % (AUTO) 7.9 % (1.0-10.0); NEUTROPHILS % (AUTO) 59.8 % (45.0-75.0); PLATELET COUNT 168 K/UL (150-450); RED BLOOD COUNT 4.05 M/UL (4.70-6.10); RED CELL DISTRIBUTION WIDTH 11.3 % (11.6-14.8)
[2017-07-04 08:52] LABS: ANION GAP 6 mmol/L (5-15); BLOOD UREA NITROGEN 9 mg/dL (7-18); CARBON DIOXIDE 30 MMOL/L (21-32); CHLORIDE 106 MMOL/L (98-107); CREATININE 0.9 MG/DL (0.55-1.30); POTASSIUM 3.5 MMOL/L (3.5-5.1); SODIUM 142 MMOL/L (136-145)
--- NOTE | 2017-07-04 10:14 | Pulmonology Progress Note ---
Assessment/Plan Assessment/Plan ASSESSMENT BPH s/p TURP 07/01/17 anxiety disorder insomnia PLAN OF CARE MS floor dc IVF, off CBI, voiding freely Pain management empiric abx IS at the bedside and encourage to use Hytrin OT OOB and ambulate soft diet as tolerated a/emetic prn psych eval appreciated started on trazodone dc today scripts provided outpt fup with surgeon case discussed and evaluated by supervising physician Subjective Allergies: Coded Allergies: No Known Allergies (Unverified , 07/01/17) Subjective afebrile, no leucocytosis sitting in the chair pain controlled off CBI, Boyer dc voiding freely tolerating diet Objective Last 24 Hour Vital Signs Date Time Temp Pulse Resp B/P (MAP) Pulse Ox O2 Delivery O2 Flow Rate FiO2 07/04/17 08:00 97.7 74 20 154/84 93 Room Air 07/04/17 06:27 97.9 07/04/17 04:51 97.9 75 19 138/69 96 07/04/17 00:48 98.1 70 19 140/80 96 07/03/17 20:50 98.0 73 17 144/83 94 07/03/17 19:17 97.6 07/03/17 16:00 97.6 77 19 143/83 97 07/03/17 16:00 97 Room Air 07/03/17 14:29 97.8 07/03/17 13:59 97.8 07/03/17 12:00 97.8 89 20 142/90 98 07/03/17 12:00 98 Room Air Intake and Output 07/03/17 07/04/17 19:00 07:00 Intake Total 900 ml 800 ml Output Total 1200 ml 1000 ml Balance -300 ml -200 ml Intake Oral 900 ml 800 ml Output Urine Total 1200 ml 1000 ml # Voids 102 2 Objective General Appearance: no acute distress, A/A/O x 3 male HEENT: normocephalic, atraumatic, anicteric, mucous membranes moist, PERRL Respiratory/Chest: lungs clear, no respiratory distress, no accessory muscle use Cardiovascular: normal peripheral pulses, normal rate, regular rhythm, no JVD Abdomen: normal bowel sounds, soft, non tender Extremities: no edema, pedal pulses normal Neurologic/Psychiatric: no motor/sensory deficits, alert, oriented x 3, responsive Musculoskeletal: normal muscle bulk Laboratory Tests 07/04/17 07:54: White Blood Count 4.0L, Red Blood Count 4.05L, Hemoglobin 12.3L, Hematocrit 35.9L, Mean Corpuscular Volume 89, Mean Corpuscular Hemoglobin 30.4, Mean Corpuscular Hemoglobin Concent 34.2, Red Cell Distribution Width 11.3L, Platelet Count 168, Mean Platelet Volume 8.7, Neutrophils (%) (Auto) 59.8, Lymphocytes (%) (Auto) 23.9, Monocytes (%) (Auto) 7.9, Eosinophils (%) (Auto) 7.8H, Basophils (%) (Auto) 0.6, Sodium Level 142, Potassium Level 3.5, Chloride Level 106, Carbon Dioxide Level 30, Anion Gap 6, Blood Urea Nitrogen 9, Creatinine 0.9, Estimat Glomerular Filtration Rate > 60, Glucose Level 144H, Calcium Level 9.0 Current Medications Medications (Trade) Dose Ordered Sig/Conchita Route PRN Reason Start Time Stop Time Status Last Admin Dose Admin Acetaminophen (Tylenol) 650 mg Q4H PRN ORAL FEVER 07/01/17 12:15 07/31/17 12:14 Acetaminophen (Tylenol) 650 mg Q6H PRN ORAL Mild Pain (Pain Scale 1-3) 07/01/17 12:15 07/31/17 12:14 Acetaminophen/ Hydrocodone Bitart ([place] 5/325) 1 tab Q4H PRN ORAL Moderate Pain (Pain Scale 4-6) 07/01/17 12:15 07/08/17 12:14 07/02/17 13:23 Carisoprodol (Soma) 350 mg EVERY 6 HOURS PRN ORAL spasm 07/01/17 15:45 07/31/17 15:44 07/03/17 06:01 Docusate Sodium (Colace) 100 mg TWICE A DAY ORAL 07/01/17 18:00 07/31/17 17:59 07/04/17 08:45 Hydromorphone HCl (Dilaudid) 2 mg Q3H PRN IVP Severe Pain (Pain Scale 7-10) 07/02/17 14:30 07/09/17 14:29 07/04/17 10:04 Levofloxacin (Levaquin) 500 mg DAILY ORAL 07/03/17 09:30 07/10/17 09:29 07/04/17 08:45 Lidocaine (Lidoderm 5% PATCH) 1 patch BEDTIME TDERMAL 07/04/17 21:00 08/01/17 21:59 Ondansetron HCl (Zofran) 4 mg Q6H PRN IVP Nausea & Vomiting 07/01/17 12:15 07/31/17 12:14 Temazepam (Restoril) 7.5 mg DAILYPRN PRN ORAL Insomnia 07/01/17 12:15 07/08/17 12:14 07/04/17 01:45 Terazosin HCl (Hytrin) 2 mg BEDTIME ORAL 07/01/17 21:00 07/31/17 20:59 07/03/17 21:10 Trazodone HCl (Desyrel) 25 mg BEDTIME ORAL 07/02/17 21:00 08/01/17 20:59 07/03/17 21:10 Louie ([facility])Marguerite NP Jul 04, 2017 10:14
[2017-07-04] MEDS ORDERED: COLACE100 MG ORAL (10:16)
[2017-07-04] MEDS ORDERED: ACETAMINOPHEN-1 EAC1 ORAL (10:16)
[2017-07-04] MEDS ORDERED: HYTRIN2 MG ORAL (10:16)
[2017-07-04] MEDS ORDERED: LEVAQUIN500 MG ORAL (10:16)
--- NOTE | 2017-07-04 16:45 | Progress Note ---
DATE: 07/04/2017 SUBJECTIVE: Today, the patient is doing well. Tolerating medications. No behavior issues. Calm and cooperative. No side effects from the trazodone. MENTAL STATUS EXAMINATION: The patient is alert and oriented times self, place, situation, and time. Mood is neutral. Affect is constricted, congruent with mood. Thought process is concrete. Thought content, no suicidal or homicidal ideations. ASSESSMENT: 1. Anxiety disorder. 2. Depression. PLAN: 1. We will continue the trazodone. 2. Provide the patient with supportive therapy and reality orientation. Heidy Hannah M.D. DR: Kt JOB#: [id number] CC:
--- NOTE | 2017-07-04 16:45 | Progress Note ---
DATE: 07/03/2017 SUBJECTIVE: The patient has been having anxiety during the day. Trazodone is helping to sleep. No behavior issues. Calm, cooperative . MENTAL STATUS EXAMINATION: The patient is alert and oriented times self, place, situation, and date. Mood is euphoric. Affect is constricted, congruent with mood. Thought process is concrete. Thought content, no suicidal or homicidal ideations. ASSESSMENT: 1. Depression. 2. Insomnia. PLAN: 1. We will continue trazodone 50 mg at bedtime. 2. Provide the patient with supportive therapy and reality orientation. Heidy Hannah M.D. DR: Kt JOB#: [id number] CC:
--- NOTE | 2017-07-08 09:33 | Discharge Summary ---
Discharge Summary Hospital Course Date of Admission Jul 01, 2017 at 08:49 Date of Discharge Jul 04, 2017 at 11:31 Admitting Diagnosis BPH, recurrent UTIs Reason for Hospitalization: elective surgery HPI Ankur Patton is a 67 year old male who was admitted on Jul 01, 2017 at 08:49 for BPH, recurrent UTIs. Patient was admitted for elective surgery Consultations dr Raza -IM Procedures s/p by dr Marie Transurethral resection of the prostate. Hospital Course s/p surgery course of recovery uneventful initially IVF and CBI empiric abx pain management OOB and encourage to ambulate, IS at the bedside , taught and encourage to use Hytrin continued started in diet and slowly advanced as tolerated a/emetic prn CBI dc, Boyer dc voided freely tolerated diet IVF dc pain addressed ambulated freely bowel regimen instituted psych seen and evaluated and diagnosed with anxiety disorder, depression and insomnia, started on Trazodone while in the hospital stable for dc home scripts provided for abx, analgesic, stool softener outpt fup with surgeon FINAL DIAGNOSIS BPH recurrent UTIs s/p TURP 07/01/17 depression anxiety disorder insomnia Discharge Medications New Medications: Acetaminophen With Codeine (T#3) (Tylenol #3 Tab*) Y Tab 1 TAB ORAL Q6HR PRN, #30 TAB Docusate Sodium* (Colace*) 100 Mg Capsule 100 MG ORAL TWICE A DAY, #60 CAP Levofloxacin* (Levaquin*) 500 Mg Tablet 500 MG ORAL DAILY for 7 Days, #7 TAB Terazosin HCl (Terazosin HCl) 2 Mg Capsule 2 MG ORAL BEDTIME, #30 CAP Continued Medications: Carisoprodol* (Soma*) 350 Mg Tablet 350 MG PO NEEDED, TAB Discontinued Medications: Terazosin HCl (Terazosin HCl) 10 Mg Capsule 10 MG PO QHS, #7 CAP 0 Refills Discharge Condition Upon Discharge: stable Discharge Disposition Patient was discharged to Home () Discharge Diagnoses: Louie ([facility])Marguerite NP Jul 08, 2017 09:33
== END 2017-07-04 11:31 | disposition home or self-care (01) | DRG 714 ==
LOC: SDSOVERFLO 08:49 → 3E 15:45
PROC: 0VT08ZZ Resection of Prostate, Via Natural or Artificial Opening Endoscopic (ICD-10-PCS; principal; 2017-07-01 11:30)
DX: N40.0 Benign prostatic hyperplasia without lower urinary tract symptoms (principal); F32.9 Major depressive disorder, single episode, unspecified; F41.9 Anxiety disorder, unspecified; G47.00 Insomnia, unspecified
CPT/HCPCS: 36415; 80048; 85025; 85610; 85730; 86850; 86900; 86901; 87081; 94003; 94150; J2250; J2405; J8499

== ENCOUNTER 2020-02-22 08:33 | Day surgery (SDC) | payer MEDICARE, MEDICAID ==
[~2020-02-22] VITALS: Ht 180.3 cm; Wt 93.9 kg
[2020-02-22] VITALS (14 sets, daily range): BP systolic 111–151; BP diastolic 62–84
--- NOTE | 2020-02-22 07:59 | Pre-Procedure Note/Attestation ---
Pre-Procedure Note/Attestation Complete Prior to Procedure Planned Procedure: left Procedure Narrative: RIRS ESWL Left Indications for Procedure Pre-Operative Diagnosis: left ureteral stone Attestation I attest that I discussed the nature of the procedure; its benefits; risks and complications; and alternatives (and the risks and benefits of such alternatives), prior to the procedure, with the patient (or the patient's legal maintenance representative). I attest that, if there was a reasonable possibility of needing a blood transfusion, the patient (or the patient's legal maintenance representative) was given the [facility] standardized written summary, pursuant to the Félix Valerie Blood Safety Act ([place] Health and Safety Code # 1645, as amended). I attest that I re-evaluated the patient just prior to the surgery and that there has been no change in the patient's H&P, except as documented below: Stefano Marie MD Feb 22, 2020 07:59
[~2020-02-22 08:33] MED LIST changes: +ACETAMINOPHEN-1 EAC1 ORAL; +CIPRO500 MG/51 PO; +COLACE100 MG ORAL; +DILAUDID4 MG ORAL; +HYTRIN10 MG PO; +HYTRIN2 MG ORAL; +LEVAQUIN500 MG ORAL; +MYRBETRIQ25 MG PO; +NAPROXEN250 M1 PO; +SOMA350 MG PO; -ceFAZolin 1gm in D5W 55ml IVP ONE; -ceFAZolin 1gm/50ml Premix 50 ML IV ONE; +cefTRIAXone 2 GM in D5W 55 ML IVPB ONE
[2020-02-22] MEDS ORDERED: Iothalamate Meglumine 60% 50ML INJ ONE (08:50)
[2020-02-22] MEDS ORDERED: QUINAPRIL HCL40 MG PO (09:10)
[2020-02-22] MEDS ORDERED: Midazolam 2mg/2ml Inj ONE (09:29)
[2020-02-22] MEDS ORDERED: fentaNYL 100 mcg/2 mL IV ONE ×2 (09:29→10:29)
[2020-02-22] MEDS ORDERED: LR 1000ml ONE (09:30)
[2020-02-22] MEDS ORDERED: Metoclopramide 10mg/2ml Inj ONE (09:54)
[2020-02-22] MEDS ORDERED: Lidocaine 1% MPF 10mg/ml 5ml ONE (09:54)
[2020-02-22] MEDS ORDERED: ePHEDrine 50mg/ml Inj ONE (09:54)
[2020-02-22] MEDS ORDERED: NS Irrig 4000ml IRRIG ONE (10:02)
--- NOTE | 2020-02-22 10:12 | Anethesia Preoperative Eval ---
Anesthesia Pre-op PMH/ROS General Date of Evaluation: Feb 22, 2020 Time of Evaluation: 09:30 ASA Score: ASA 2 Mallampati Score Class I : Soft palate, uvula, fauces, pillars visible Class II: Soft palate, uvula, fauces visible Class III: Soft palate, base of uvula visible Class IV: Only hard plate visible Mallampati Classification: Class II Surgeon: LUIS ALBERTO Diagnosis: Renal Stones Surgical Procedure: ESWL; Stent Anesthesia History: none Family History: no anesthesia problems Allergies: Coded Allergies: SULFACETAMIDE (Verified Allergy, Unknown, 02/21/20) Medications: see eMAR Patient NPO?: Yes NPO Date: Feb 22, 2020 NPO Time: 00:01 Past Medical History Cardiovascular: Reports: HTN; Denies: CAD, VT, valve dz, arrhythmia, other Pulmonary: Denies: asthma, COPD, SHARRI, other Gastrointestinal/Genitourinary: Denies: GERD, CRI, ESRD, other Neurologic/Psychiatric: Denies: dementia, CVA, depression/anxiety, TIA, other Endocrine: Denies: DM, hypothyroidism, steroids, other HEENT: Reports: other - [place]; Denies: cataract (L), cataract (R), glaucoma, MARSHALL (L), MARSHALL (R) Hematology/Immune: Denies: anemia, DVT, bleeding disorder, other Musculoskeletal/Integumentary: Denies: OA, RA, DJD, DDD, edema, other PSxH Narrative: see chart Anesthesia Pre-op Phys. Exam Physician Exam Last Vital Signs Date Time Temp Pulse Resp B/P (MAP) Pulse Ox O2 Delivery O2 Flow Rate FiO2 02/22/20 09:04 Room Air 02/22/20 09:04 97.1 74 18 151/84 97 Constitutional: NAD Neurologic: CN 2-12 intact Cardiovascular: RRR Respiratory: CTA Gastrointestinal: S/NT/ND Airway Exam Mallampati Classification 2 Mallampati Score: Class II MO: limited Neck: stiff TMD: 2fb ROM: full Dentures: no upper, no lower Anesthesia Pre-op A/P Studies Pre-op Studies: EKG - sr Risk Assessment & Plan Assessment: covid neg Plan: LMA; GA Status Change Before Surgery: No Pre-Antibiotics Drug: Ceftriaxone Given Within 1 Hr of Incision: Yes Time Given: 09:35 Kandice Headley CRNA Feb 22, 2020 10:12
[2020-02-22] MEDS ORDERED: fentaNYL 100 mcg/2 mL IV PRN (10:15)
[2020-02-22] MEDS ORDERED: Metoclopramide 10mg/2ml Inj IVP PRN (10:15)
[2020-02-22] MEDS ORDERED: DiphenhydrAMINE 50mg/ml Inj IVP PRN (10:15)
--- NOTE | 2020-02-22 10:31 | Brief Operative Note ---
Immediate Post Operative Note Operative Note Pre-op Diagnosis: left ureteral stone Procedure: RIRS ESWL Left Post-op Diagnosis: same Post-op Diagnosis: same as pre-op Surgeon: Salvatore Marie Anesthesia: general Specimen: none Complications: none Condition: stable Fluids: 500 Implant(s) used?: Yes Stefano Marie MD Feb 22, 2020 10:31
[2020-02-22] MEDS ORDERED: D5 1/2NS 1,000 ML IV SCH (10:45)
[2020-02-22] MEDS ORDERED: HYDROcodone/Acetamin 5/325 tab ORAL PRN (10:45)
[2020-02-22] MEDS ORDERED: Tylenol #3 tab (300mg/30mg) ORAL PRN (10:45)
[2020-02-22] MEDS ORDERED: HYDROmorphone 1mg/ml Carpuject SUBQ PRN (10:45)
[2020-02-22] MEDS ORDERED: Hydromorphone 0.5mg/0.5ml inj IVP SCH (12:00)
[2020-02-22] MEDS ORDERED: Hydromorphone 0.5mg/0.5ml inj ONE (12:03)
--- NOTE | 2020-02-22 14:20 | Immediate Post-Op Evaluation ---
Immediate Post-Op Evalulation Immediate Post-Op Evalulation Procedure: ESWL Date of Evaluation: Feb 22, 2020 Time of Evaluation: 10:53 IV Fluids: 1500 Blood Pressure Systolic: 117 Blood Pressure Diastolic: 75 Pulse Rate: 79 Respiratory Rate: 14 O2 Sat by Pulse Oximetry: 100 Temperature (Fahrenheit): 97.8 Nausea: No Vomiting: No Complications none Patient Status: awake, reacts, patent Hydration Status: adequate Drug: ceftriaxone Given Within 1 Hr of Incision: Yes Time Given: 09:35 Kandice Headley CRNA Feb 22, 2020 14:20
--- NOTE | 2020-02-22 14:21 | 48 Hour Post Anesthesia Eval ---
Post Anesthesia Evaluation Procedure: ESWL Date of Evaluation: Feb 22, 2020 Time of Evaluation: 14:20 Blood Pressure Systolic: 125 0: 78 Pulse Rate: 88 Respiratory Rate: 14 Temperature (Fahrenheit): 98 O2 Sat by Pulse Oximetry: 98 Nausea: No Vomiting: No Hydration Status: adequate Cardiopulmonary Status: stable Mental Status/LOC: patient returned to baseline Follow-up Care/Observations: na Post-Anesthesia Complications: none Follow-up care needed: N/A Kandice Headley CRNA Feb 22, 2020 14:21
--- NOTE | 2020-02-24 20:00 | Operative Note - Dictated ---
DATE OF OPERATION: 02/22/2020 PREOPERATIVE DIAGNOSIS: Large left renal stone. POSTOPERATIVE DIAGNOSIS: Large left renal stone. OPERATION: Cystoscopy, retrograde intrarenal surgery in combination with extracorporeal shock wave lithotripsy, double-J stent placement. [employer]: Stefano Marie MD. ANESTHESIA: General. FINDINGS: Large left renal stone. INDICATIONS FOR SURGERY: The patient had recurrent urinary tract infections. He had a previous transurethral resection of the prostate. CT urogram showed more than 1-cm stone in the left ureter. Treatment options were explained to him in great length including all potential complications. He signed a consent. DESCRIPTION OF PROCEDURE: He was brought to the operating room, placed in lithotomy position, prepped and draped in standard fashion under general anesthesia. Cystoscope was introduced into the bladder and guidewire was placed into the left ureter. After that, flexible ureteroscope was introduced into the bladder all the way to the kidney stones. Upon removing in the kidney region, shock wave lithotripsy with 9 kilovolts and 2400 shocks for the stones of the calyceal system. The left kidney was broken down into small pieces. Double-J stent 26 x 7-Romansh was placed and left indwelling. The patient tolerated the procedure well. Boyer catheter. Sponge count and instrument count was correct. The patient was transferred to recovery room in stable condition. No evidence of complications. Stefano Marie M.D. DR: TAY JOB#: [id number] CC:
== END 2020-02-22 13:15 | disposition home or self-care (01) ==
LOC: SUR 08:33 → EDSTATUS 11:30 → SUR 13:15
DX: N20.0 Calculus of kidney (principal); Z88.2 Allergy status to sulfonamides; I10 Essential (primary) hypertension
CPT/HCPCS: 52356; 94003; J0696; J1170; J1940; J2250; J2405; J2704; J2765; J3010; J7120; U0002; 94150